=== PATIENT | female | born 1975 | race Caucasian/White ===

== ENCOUNTER → 2017-03-15 | Outpatient (CLI) | payer MEDICAID | LOC: FIMAGING 11:37 | PROVIDERS: ATTEND Student in an Organized Health Care Education/Training Program | DX: O09.522 Supervision of elderly multigravida, second trimester (principal); Z3A.13 13 weeks gestation of pregnancy ==

== ENCOUNTER → 2017-04-26 | Outpatient (CLI) | payer MEDICAID | LOC: FIMAGING 11:33 | PROVIDERS: ATTEND Student in an Organized Health Care Education/Training Program | DX: O09.512 Supervision of elderly primigravida, second trimester (principal); Z3A.19 19 weeks gestation of pregnancy ==